=== PATIENT | female | born 1965 | race American Indian/Alaskan Native ===

== ENCOUNTER 2018-12-14 08:43 | Inpatient (IN) | payer BC ==
--- NOTE | 2018-12-14 10:16 | Emergency Department Report ---
ED General Adult HPI - General Chief complaint: Syncope Stated complaint: SYNCOPE Time Seen by Provider: 12/14/18 10:05 Source: patient, EMS, RN notes reviewed Mode of arrival: Ambulatory Limitations: No Limitations - History of Present Illness Initial comments: Primary care Dr.: Dr. 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 The patient presents to the emergency room today with a complaint of resolved lightheadedness, feeling off-balance, and binocular blurry vision. She felt like she might pass out, but she is not sure. 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 She denies headache, neck pain, chest pain, abdominal pain, shortness of breath, hematemesis, bright red blood per rectum. There is no leg pain, there is no leg swelling. The symptoms lasted for 30 seconds. They resolved. They did not radiate anywhere, they were painless, and they did not have exacerbating or relieving factors. The patient endorses compliance with her medications. She endorses no recent medication changes. She has no physical complaints at this time. She did not eat breakfast this morning, but she reports that she typically does not eat in the morning. -: Sudden Severity scale (0 -10): 0 Consistency: now resolved Improves with: none Worsens with: none Associated Symptoms: denies other symptoms - Related Data Home Medications Medication Instructions Recorded Confirmed Last Taken Losartan/Hydrochlorothiazide 1 each PO QAM 12/14/18 12/14/18 12/14/18 [Losartan-Hctz 50-12.5 mg Tab] Allergies Allergy/AdvReac Type Severity Reaction Status Date / Time No Known Allergies Allergy Verified 12/14/18 12:55 ED Review of Systems ROS: Stated complaint: SYNCOPE Other details as noted in HPI Constitutional: malaise, weakness. denies: fever Eyes: vision change ENT: denies: epistaxis Respiratory: denies: cough Cardiovascular: syncope (patient endorses questionable near syncope, but end orses that she did not lose consciousness or pass out.). denies: chest pain Gastrointestinal: nausea. denies: abdominal pain, vomiting, diarrhea, constipation, hematemesis, melena, hematochezia Genitourinary: denies: dysuria Musculoskeletal: denies: back pain Neurological: abnormal gait Psychiatric: anxiety ED Past Medical Hx - Past Medical History Previous Medical History?: Yes Hx Hypertension: Yes Additional medical history: seasonal allergies - Surgical History Past Surgical History?: No - Social History Smoking Status: Unknown if ever smoked - Medications Home Medications: Home Medications Medication Instructions Recorded Confirmed Last Taken Type Losartan/Hydrochlorothiazide 1 each PO QAM 12/14/18 12/14/18 12/14/18 History [Losartan-Hctz 50-12.5 mg Tab] ED Physical Exam - General Limitations: No Limitations General appearance: alert, in no apparent distress - Head Head exam: Present: atraumatic, normocephalic - Eye Eye exam: Present: normal appearance, PERRL, EOMI, other (visual acuity intact to finger counting, color perception, reading at a close distance). Absent: nystagmus - ENT ENT exam: Present: normal exam, normal orophraynx, mucous membranes moist, normal external ear exam - Neck Neck exam: Present: normal inspection, full ROM - Respiratory Respiratory exam: Present: normal lung sounds bilaterally. Absent: respiratory distress - Cardiovascular Cardiovascular Exam: Present: regular rate, normal rhythm, normal heart sounds. Absent: bradycardia, tachycardia, irregular rhythm, systolic murmur, diastolic murmur, rubs, gallop - GI/Abdominal GI/Abdominal exam: Present: soft. Absent: distended, tenderness, guarding, r ebound, rigid, pulsatile mass - Extremities Exam Extremities exam: Present: normal inspection, full ROM, other (2+ pulses noted in the bilateral upper, lower extremities. Compartments soft. No long bony tenderness. The pelvis is stable.). Absent: pedal edema, calf tenderness - Back Exam Back exam: Present: normal inspection, full ROM. Absent: tenderness, CVA tenderness (R), CVA tenderness (L), paraspinal tenderness, vertebral tenderness - Neurological Exam Neurological exam: Present: alert, oriented X3, normal gait, other (Extraocular movements intact. Tongue midline. No facial droop. Facial sensation intact to light touch in the V1, V2, V3 distribution bilaterally. 5 and 5 strength in 4 extremities.. Sensation is intact to light touch in 4 extremities.). Absent: motor sensory deficit - Psychiatric Psychiatric exam: Present: normal affect, normal mood - Skin Skin exam: Present: warm, dry, intact, normal color. Absent: rash ED Course Vital Signs 12/14/18 12/14/18 12/14/18 08:55 09:27 10:15 Temperature 98.5 F Pulse Rate 78 79 Respiratory 14 16 18 Rate Blood Pressure 142/90 Blood Pressure 142/90 137/89 [Right] O2 Sat by Pulse 99 100 Oximetry 12/14/18 12:50 Temperature Pulse Rate 87 Respiratory 16 Rate Blood Pressure Blood Pressure 121/82 [Right] O2 Sat by Pulse 98 Oximetry - Reevaluation(s) Reevaluation #1: 12/14/18 11:04 Differential diagnosis, including but not limited to: Orthostasis, vagal event, structural cardiac disease, TIA, electrolyte derangement, pulmonary embolus Assessment and plan: 53-year-old female, 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 She does not believe that she had any loss of consciousness. Not tachycardic, not hypoxic, however, EKG abnormal, with a left axis deviation, and a left anterior fascicular block. She is not tachycardic. She is not hypoxic. The patient does not meet TPA criteria at this time as she has an NIH score of 0. Given her normal exam and her endorsed symptoms, very unlikely to be large vessel occlusion. A d-dimer is sent to risk stratify patient for pulmonary embolus, and comes back elevated, and therefore, we will obtain a noncontrast CT scan of the brain, and CT angiogram of the chest to exclude pulmonary embolus. The patient was evaluated in consultation with stroke neurology colleague, Dr. Tawny Glynn, who agreed with the aforementioned plan of care, and also agreed with admission to the hospital for further evaluation and management. We discussed this with the patient, who verbalized understanding, and is amenable to this plan of care. 12/14/18 11:53 Reevaluation #2: 12/14/18 14:15 CT scan of the brain negative for acute disease. Dr. Virk except to the medical service. CT scan chest pending interpretation. Reevaluation #3: 12/14/18 14:54 CT angio chest negative for acute disease. ED Medical Decision Making - Lab Data Result diagrams: 12/14/18 10:20 12/14/18 10:20 Vital Signs 12/14/18 12/14/1819 08:55 09:27 10:15 Temperature 98.5 F Pulse Rate 78 79 Respiratory 14 16 18 Rate Blood Pressure 142/90 Blood Pressure 142/90 137/89 [Right] O2 Sat by Pulse 99 100 Oximetry Lab Results 12/14/18 12/14/18 12/14/18 Range/Units 10:20 10:20 10:20 WBC 8.1 (4.5-11.0) K/mm3 RBC 5.38 H (3.65-5.03) M/mm3 Hgb 14.9 H (10.1-14.3) gm/dl Hct 45.7 H (30.3-42.9) % MCV 85 (79-97) fl MCH 28 (28-32) pg MCHC 33 (30-34) % RDW 14.4 (13.2-15.2) % Plt Count 283 (140-440) K/mm3 Lymph % (Auto) 19.4 (13.4-35.0) % [place] % (Auto) 6.2 (0.0-7.3) % Eos % (Auto) 2.6 (0.0-4.3) % Baso % (Auto) 0.7 (0.0-1.8) % Lymph # 1.6 (1.2-5.4) K/mm3 [place] # 0.5 (0.0-0.8) K/mm3 Eos # 0.2 (0.0-0.4) K/mm3 Baso # 0.1 (0.0-0.1) K/mm3 Seg Neutrophils % 71.1 H (40.0-70.0) % Seg Neutrophils # 5.8 (1.8-7.7) K/mm3 PT 14.0 (12.2-14.9) Sec. INR 1.02 (0.87-1.13) D-Dimer 238.85 H (0-234) ng/mlDDU Total Creatine Kinase 185 H (30-135) units/L TSH (0.270-4.200) mlU/mL 12/14/18 Range/Units 10:20 WBC (4.5-11.0) K/mm3 RBC (3.65-5.03) M/mm3 Hgb (10.1-14.3) gm/dl Hct (30.3-42.9) % MCV (79-97) fl MCH (28-32) pg MCHC (30-34) % RDW (13.2-15.2) % Plt Count (140-440) K/mm3 Lymph % (Auto) (13.4-35.0) % [place] % (Auto) (0.0-7.3) % Eos % (Auto) (0.0-4.3) % Baso % (Auto) (0.0-1.8) % Lymph # (1.2-5.4) K/mm3 [place] # (0.0-0.8) K/mm3 Eos # (0.0-0.4) K/mm3 Baso # (0.0-0.1) K/mm3 Seg Neutrophils % (40.0-70.0) % Seg Neutrophils # (1.8-7.7) K/mm3 PT (12.2-14.9) Sec. INR (0.87-1.13) D-Dimer (0-234) ng/mlDDU Total Creatine Kinase (30-135) units/L TSH 1.600 (0.270-4.200) mlU/mL - EKG Data -: EKG Interpreted by Me EKG shows normal: sinus rhythm Rate: normal - EKG Data When compared to previous EKG there are: previous EKG unavailable 12/14/18 11:06 This is a normal sinus, 75 bpm, QTC prolonged, left axis deviation, left anterior fascicular block, low voltage in the lateral leads, abnormal EKG, not having chest pain, not consistent with ST elevation myocardial infarction. - Radiology Data Radiology results: pending Critical care attestation.: If time is entered above; I have spent that time in minutes in the direct care of this critically ill patient, excluding procedure time. ED Disposition Clinical Impression: Near syncope, TIA (transient ischemic attack) Disposition: [id number] OP ADMIT IP TO THIS HOSP Is pt being admited?: Yes Condition: Stable
[2018-12-14 10:34] LABS: Basophils # (Auto) 0.1 K/mm3 (0.0-0.1); Basophils % (Auto) 0.7 % (0.0-1.8); Eosinophils # (Auto) 0.2 K/mm3 (0.0-0.4); Eosinophils % (Auto) 2.6 % (0.0-4.3); Hematocrit 45.7 % (30.3-42.9); Hemoglobin 14.9 gm/dl (10.1-14.3); Lymphocytes # (Auto) 1.6 K/mm3 (1.2-5.4); Lymphocytes % (Auto) 19.4 % (13.4-35.0); Mean Corpuscular HGB Conc 33 % (30-34); Mean Corpuscular Volume 85 fl (79-97); Monocytes # (Auto) 0.5 K/mm3 (0.0-0.8); Monocytes % (Auto) 6.2 % (0.0-7.3); Platelet Count 283 K/mm3 (140-440); Red Blood Count 5.38 M/mm3 (3.65-5.03); Red Cell Distribution Width 14.4 % (13.2-15.2)
[2018-12-14 10:50] LABS: INR 1.02 (0.87-1.13)
[2018-12-14] MEDS ORDERED: NACL 0.9% 500 ML 500 ML IV ONE (11:00)
[2018-12-14 11:24] LABS: BUN/Creatinine Ratio 10; Blood Urea Nitrogen 8 mg/dL (7-17); Calcium 9.7 mg/dL (8.4-10.2); Hemolysis Index 4
--- NOTE | 2018-12-14 12:48 | History and Physical Report ---
History of Present Illness Chief complaint: I got weak, and i blacked out History of present illness: 53 YO Female with Obesity, HTN, Seasonal Allergies presents to ED for evaluation. Pt states that she was at work and experienced a sudden onset of blurred vision, and feeling "Off Balance", slurred speech, and feeling as though she was goind to pass out. EMS notified, and upon arrival the patient was found to be in distress and transported to [facility]. Pt seen and evaluated in ED and found to have symptoms consistent with CVA. Pt admitted to telemetry and initiated on CVA protocol. Pt denies fever, chills, CP, Palpitations, Unilateral leg swelling, calf pain, BRBPR, Productive cough, skin rash, or recent ill contacts. No prior admission for review. All listed medication reconciled at time of admission. Primary care Dr.: Dr. Cohn Past History Past Medical History: hypertension, other (seasonal allergies) Past Surgical History: No surgical history, Other (reviewed) Social history: . denies: smoking, alcohol abuse, prescription drug abuse Family history: hypertension Medications and Allergies Allergies Allergy/AdvReac Type Severity Reaction Status Date / Time No Known Allergies Allergy Verified 12/14/18 12:55 Home Medications Medication Instructions Recorded Confirmed Last Taken Type Losartan/Hydrochlorothiazide 1 each PO QAM 12/14/18 12/14/18 12/14/18 History [Losartan-Hctz 50-12.5 mg Tab] Review of Systems Constitutional: no weight loss, no chills Ears, nose, mouth and throat: no ear pain, no ear discharge, no tinnitis, no decreased hearing, no nose pain, no nasal discharge Breasts: no change in shape, no swelling, no mass Cardiovascular: no chest pain, no orthopnea, no palpitations, no rapid/irregular heart beat, no edema Respiratory: no cough, no cough with sputum, no hemoptysis, no shortness of breath, no dyspnea on exertion Gastrointestinal: no nausea, no diarrhea, no hematemesis Genitourinary Female: no pelvic pain, no flank pain, no menorrhagia, no dysuria Rectal: no pain, no incontinence, no bleeding Musculoskeletal: no neck stiffness, no neck pain, no arm numbness/tingling, no low back pain, no shooting leg pain, no leg numbness/tingling Integumentary: no rash, no pruritis, no redness, no sores, no wounds, no boils Neurological: weakness, lack of coordination, gait dysfunction, motor disturbance, double vision, no vertigo, no headaches, no migraines Psychiatric: no anxiety, no memory loss, no change in sleep habits, no sleep disturbances, no hypersomnia Endocrine: no cold intolerance, no heat intolerance, no polyphagia, no polydipsia, no polyuria, no nocturia Hematologic/Lymphatic: no easy bruising, no easy bleeding Allergic/Immunologic: no urticaria, no allergic rhinitis Exam - Constitutional Vitals: Temp Pulse Resp BP Pulse Ox 98.5 F 79 18 137/89 100 12/14/18 08:55 12/14/18 10:15 12/14/18 10:15 12/14/18 10:15 12/14/18 10:15 General appearance: Present: mild distress, obese - EENT Eyes: Present: PERRL ENT: hearing intact, clear oral mucosa - Neck Neck: Present: supple, normal ROM - Respiratory Respiratory effort: normal Respiratory: bilateral: CTA - Cardiovascular Heart Sounds: Present: S1 & S2. Absent: rub, click - Extremities Extremities: pulses symmetrical, No edema Peripheral Pulses: within normal limits - Abdominal General gastrointestinal: Present: soft, non-tender, non-distended, normal bowel sounds Female genitourinary: Present: normal - Integumentary Integumentary: Present: clear, warm, dry - Musculoskeletal Musculoskeletal: gait normal, strength equal bilaterally - Psychiatric Psychiatric: appropriate mood/affect, intact judgment & insight - Neurologic Neurologic: CNII-XII intact, moves all extremities Results - Labs CBC & Chem 7: 12/14/18 10:20 12/14/18 10:20 Labs: Abnormal lab results 12/14/18 12/14/18 12/14/18 Range/Units 10:20 10:20 10:20 RBC 5.38 H (3.65-5.03) M/mm3 Hgb 14.9 H (10.1-14.3) gm/dl Hct 45.7 H (30.3-42.9) % Seg Neutrophils % 71.1 H (40.0-70.0) % D-Dimer 238.85 H (0-234) ng/mlDDU Glucose 103 H (65-100) mg/dL Total Creatine Kinase (30-135) units/L 12/14/18 Range/Units 10:20 RBC (3.65-5.03) M/mm3 Hgb (10.1-14.3) gm/dl Hct (30.3-42.9) % Seg Neutrophils % (40.0-70.0) % D-Dimer (0-234) ng/mlDDU Glucose (65-100) mg/dL Total Creatine Kinase 185 H (30-135) units/L Assessment and Plan - Patient Problems (1) CVA (cerebral vascular accident) Current Visit: Yes Status: Acute Qualifiers: Precerebral and cerebral artery: unspecified precerebral artery Plan to address problem: Stroke Protocol: Admit to telemetry, CT head, MRI brain, MRA brain, Echo, Carotid Doppler, PT/OT/Speech, Antiplatelet therapy, Neuro checks, Neurology consulted. (2) Obesity (BMI 30.0-34.9) Current Visit: Yes Status: Acute Plan to address problem: Balanced diet, increased physical activity at discharge (3) HTN (hypertension) Current Visit: Yes Status: Acute Qualifiers: Hypertension type: essential hypertension Qualified Code(s): I10 - Essential (primary) hypertension Plan to address problem: monitor bp q shift, continue medical management (4) Metabolic syndrome Current Visit: Yes Status: Acute Plan to address problem: Balanced diet, increased physical activity at discharge, lipid panel, (5) DVT prophylaxis Current Visit: Yes Status: Acute Plan to address problem: SCD to BLE while in bed, Pt ambulating independently
[2018-12-14] MEDS ORDERED: REGLAN PO PRN (12:49)
[2018-12-14] MEDS ORDERED: MILK OF MAGNESIA PO PRN (12:49)
[2018-12-14] MEDS ORDERED: SODIUM CHLORIDE FLUSH SYRINGE 10 ML IV PRN (12:49)
[2018-12-14] MEDS ORDERED: DULCOLAX PR PRN (12:49)
[2018-12-14] MEDS ORDERED: ZOFRAN IV PRN (12:49)
[2018-12-14] MEDS ORDERED: TYLENOL PO PRN (12:49)
[2018-12-14] MEDS ORDERED: PHENERGAN PR PRN (12:49)
--- NOTE | 2018-12-14 14:10 | Cat Scan Report ---
PROCEDURE: CT HEAD/BRAIN WO CON TECHNIQUE: Computerized tomography of the head was performed without contrast material. CT DOSE LENGTH PRODUCT: 920.5 mGycm HISTORY: tia vs syncoppe COMPARISONS: None . FINDINGS: Skull and scalp: Normal . Paranasal sinuses: Normal . Ventricles and subarachnoid spaces: Normal . Cerebrum: No evidence of hemorrhage, acute infarction or mass . Cerebellum and brainstem: No evidence of hemorrhage, acute infarction or mass . Vasculature: Normal noncontrast appearance . IMPRESSION: No acute intracranial abnormality . This document is electronically signed by Jenni Spangler MD., Dec 14 2018 02:08:08 PM ET
[2018-12-14] MEDS ORDERED: ASPIRIN PO STA (14:15)
--- NOTE | 2018-12-14 14:16 | Cat Scan Report ---
PROCEDURE: CT ANGIO CHEST TECHNIQUE: Computerized tomographic angiography of the chest was performed after the IV injection of iodinated nonionic contrast including image processing. The image data was postprocessed using 2-di mensional multiplanar reformatted (MPR) and 3-dimensional (MIP and/or volume rendered) techniques. Au tomated exposure control, adjustment of mA and/or kV according to patient size, or iterative reconstr uction dose optimization techniques were utilized. CT DOSE LENGTH PRODUCT: 624.1 mGycm HISTORY: near syncope + d dimer COMPARISONS: None . FINDINGS: Heart and pericardium: Normal. Thoracic aorta: Normal. Pulmonary vasculature: No filling defect to suggest pulmonary embolism. Lymph nodes: No enlarged thoracic lymph nodes. Lungs: Normal. Pleural space: No effusion, thickening, or pneumothorax. Musculoskeletal structures: No significant abnormality. Upper abdominal structures: 2.3 cm low-density lesion in the medial left hepatic lobe (series 2, [id number]), that is incompletely characterized, but may represent a cyst. Low-density lesions in the bila teral kidneys, there are incompletely characterized but may represent cysts. IMPRESSION: No evidence of pulmonary embolism . Low-density lesions within the medial left hepatic lobe and the bilateral kidneys, incompletely tania cterized on this nondedicated study. Consider further evaluation with abdominal ultrasound. This document is electronically signed by Jenni Spangler MD., Dec 14 2018 02:14:14 PM ET
--- NOTE | 2018-12-14 15:31 | Vascular Lab Report ---
PROCEDURE: VL CAROTID DUPLEX BILAT HISTORY: stroke FINDINGS: Real-time ultrasound of the cervical arterial vasculature was performed using grayscale and color Doppler images. On the right, peak systolic velocity in the common carotid artery was 109 cm/s. In the internal carot id was 110 cm/s and in the external carotid 80 cm/s. Flow in the vertebral artery was antegrade at 51 cm/s. The ratio of flow of the internal carotid to the common carotid was 1.0 which is within normal limits. On the left, peak systolic velocity in the common carotid artery was 100 cm/s. In the internal caroti d it was 96 cm/s and in the external carotid 64 cm/s. Flow in the vertebral artery was antegrade at 5 8 cm/s. IMPRESSION: No stenosis of greater than 50% is seen in the cervical arterial vasculature This document is electronically signed by Trevon Patel MD., Dec 14 2018 03:29:49 PM ET
--- NOTE | 2018-12-14 16:45 | Magnetic Resonance Report ---
MRI BRAIN WITHOUT CONTRAST: 12/14/18 12:49:00 CLINICAL: New onset dizziness. TECHNIQUE: Axial diffusion, T1, T2, gradient echo T2*, coronal and axial FLAIR and sagittal T1 sequences on a 1.5 [place] magnet. FINDINGS: The ventricles and sulci are normal for age. No restricted diffusion. No mass or mass effect. No hemorrhage, edema or extra-axial collection. A benign 6 mm extra-axial cyst of the posterior fossa is associated with the right transverse venous sinus. No chronic microbleeds on the gradient echo sequence. Normal pituitary and optic chiasm. The brainstem and cerebellum are normal. Intact vascular flow voids. Normal sinuses. The orbits, and soft tissues are normal. Normal calvarium and skull base. IMPRESSION: No evidence of acute/subacute infarct or hemorrhage. A benign 6 mm right posterior fossa cyst associated with the transverse venous sinus.
--- NOTE | 2018-12-14 16:46 | Magnetic Resonance Report ---
MRA HEAD WITHOUT CONTRAST: 12/14/18 12:49:00 CLINICAL: Stroke. TECHNIQUE: Axial 3-D [id number] MR angiography of the grayling of [place] with review of axial source images. FINDINGS: Intact [place] of [place] with no aneurysm, stenosis or occlusion. Symmetric blood flow in the anterior, middle and posterior cerebral arteries. Normal basilar and vertebral arteries. IMPRESSION: Normal study.
--- NOTE | 2018-12-14 17:02 | Progress Note ---
Subjective Date of service: 12/14/18 Interval history: my reading on the MRI/MRA/ CT of head is normal the transverse sinus change is natomical issue and no pathological marker but still want to discuss with radiology plan follow up Objective - Vital Sign Vital Signs - 12hr 12/14/18 12/14/18 12/14/18 08:55 09:27 10:15 Temperature 98.5 F Pulse Rate 78 79 Respiratory 14 16 18 Rate Blood Pressure 142/90 Blood Pressure 142/90 137/89 [Right] O2 Sat by Pulse 99 100 Oximetry 12/14/18 12:50 Temperature Pulse Rate 87 Respiratory 16 Rate Blood Pressure Blood Pressure 121/82 [Right] O2 Sat by Pulse 98 Oximetry - Laboratory Findings CBC and BMP: 12/14/18 10:20 12/14/18 10:20 Abnormal Lab Findings: Abnormal Labs 12/14/18 12/14/18 12/14/18 10:20 10:20 10:20 RBC 5.38 H Hgb 14.9 H Hct 45.7 H Seg Neutrophils % 71.1 H D-Dimer 238.85 H Glucose 103 H Total Creatine Kinase 12/14/18 10:20 RBC Hgb Hct Seg Neutrophils % D-Dimer Glucose Total Creatine Kinase 185 H
--- NOTE | 2018-12-14 18:09 | Consultation ---
History of Present Illness Consult date: 12/14/18 Medications and Allergies Allergies Allergy/AdvReac Type Severity Reaction Status Date / Time No Known Allergies Allergy Verified 12/14/18 12:55 Home Medications Medication Instructions Recorded Confirmed Last Taken Type Losartan/Hydrochlorothiazide 1 each PO QAM 12/14/18 12/14/18 12/14/18 History [Losartan-Hctz 50-12.5 mg Tab] Active Meds: Active Medications Acetaminophen (Tylenol) 650 mg PO Q4H PRN PRN Reason: Pain, Mild (1-3) Aspirin (Aspirin) 325 mg PO QDAY ARMANI Atorvastatin Calcium (Lipitor) 40 mg PO QHS ARMANI Bisacodyl (Dulcolax) 10 mg WV QDAY PRN PRN Reason: Constipation Magnesium Hydroxide (Milk Of Magnesia) 30 ml PO Q4H PRN PRN Reason: Constipation Metoclopramide HCl (Reglan) 10 mg PO Q6H PRN PRN Reason: Nausea And Vomiting Ondansetron HCl (Zofran) 4 mg IV Q8H PRN PRN Reason: Nausea And Vomiting Promethazine HCl (Phenergan) 25 mg WV Q6H PRN PRN Reason: Nausea And Vomiting Sodium Chloride (Sodium Chloride Flush Syringe 10 Ml) 10 ml IV PRN PRN PRN Reason: LINE FLUSH Physical Examination - Vital Signs Vital Signs: Vital Signs Temp Pulse Resp BP Pulse Ox 98.5 F 78 14 142/90 99 12/14/18 08:55 12/14/18 08:55 12/14/18 08:55 12/14/18 08:55 12/14/18 08:55 Results - Laboratory Findings CBC and BMP: 12/14/18 10:20 12/14/18 10:20 Abnormal Lab Findings: Abnormal Labs 12/14/18 12/14/18 12/14/18 10:20 10:20 10:20 RBC 5.38 H Hgb 14.9 H Hct 45.7 H Seg Neutrophils % 71.1 H D-Dimer 238.85 H Glucose 103 H Total Creatine Kinase 12/14/18 10:20 RBC Hgb Hct Seg Neutrophils % D-Dimer Glucose Total Creatine Kinase 185 H Assessment and Plan [facility] Consult Services Impression: * Dizzines STAT consult. Patient is a pleasant 53 year old woman who presents with a spell of short duration of dizziness, without clear indication of focal deficits, and she now has a normal exam. DD includes TIA. Patient is not candidate for acute intervention or tPA thromnbolytics. There is no indication of LVO disease and so not candidate for thrombectomy. Consider observational admission for MRI head and MRA head and if negative, follow up as outpt. No other recommendations with regards to acute treatment. Discussed with ED MD Please call with questions Wimler Glynn MD [facility] CC dizziness History of Present Illness Patient is a pleasant 53 year old woman who presents with history of a single spell of dizziness, short duration, specifically, patient states that she felt a sensation of dizziness and disequilibrium and felt a slight imbalance in the time the symptoms started earlier this morning. Furthermore patient did not have any other associated symptoms. Patient was then brought here for further evaluation. Since then the symptoms of completely resolved. The duration of the symptoms were only several minutes. Diagnostic: CT head reviewed Exam: Patient is in no apparent distress. Patient appears as stated age. No obvious acute respiratory or cardiac distress. Patient is well groomed and well- nourished. 1A: Level of Consciousness - Alert; keenly responsive 1B: Ask Month and Age - Both Questions Right 1C: 'Blink Eyes' & 'Squeeze Hands' - Performs Both Tasks 2: Test Horizontal Extraocular Movements - Normal 3: Test Visual Guy - No Visual Loss 4: Test Facial Palsy - Normal symmetry 5A: Test Left Arm Motor Drift - No Drift for 10 Seconds 5B: Test Right Arm Motor Drift - No Drift for 10 Seconds 6A: Test Left Leg Motor Drift - No Drift for 5 Seconds 6B: Test Right Leg Motor Drift - No Drift for 5 Seconds 7: Test Limb Ataxia - No Ataxia 8: Test Sensation - Normal; No sensory loss 9: Test Language/Aphasia - Normal; No aphasia 10: Test Dysarthria - Normal 11: Test Extinction/Inattention - No abnormality NIHSS 0 Medical Decision Making: - Extensive number of diagnosis or management options are considered above. - Extensive amount of complex data reviewed. - High risk of complication and/or morbidity or mortality are associated with differential diagnostic considerations above. - There may be Uncertain outcome and increased probability of prolonged functional impairment or high probability of severe prolonged functional impairment associated with some of these differential diagnosis. Medical Data Reviewed: 1.Data reviewed include clinical labs, radiology,Medical Tests; 2.Tests results discussed w/performing or interpreting physician; 3.Obtaining/reviewing old medical records; 4.Obtaining case history from another source; 5.Independent review of image, tracing or specimen. Patient was informed the Neurology Consult would happen via telehealth (remote video) and consented to receiving care in this manner.
[2018-12-14] MEDS ORDERED: ASPIRIN ONE (19:02)
[2018-12-15] MEDS ORDERED: ASPIRIN PO SCH (10:00)
[2018-12-15] MEDS ORDERED: COZAAR PO SCH (10:00)
[2018-12-15] MEDS ORDERED: HCTZ PO SCH (10:00)
--- NOTE | 2018-12-15 15:10 | Discharge Summary ---
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 MRI/MRA unremarkable for stroke. 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 every 3 months with her pcp Borderline low EF on ECHO: outpatient Cardiology followup Obesity (BMI 30.0-34.9), bmi 33.5: careers counsellor on with reduction HTN (hypertension); low salt diet Metabolic syndrome suspected: lifestyle modifications discussed, check lipids prior to discharge Disposition: DC-01 TO HOME OR SELFCARE Time spent for discharge: 34 minutes Core Measure Documentation - Palliative Care Palliative Care/ Comfort Measures: Not Applicable - Core Measures Any of the following diagnoses?: none - VTE Discharge Requirements Deep Vein Thrombosis/Pulmonary Embolism Present on Admission: No Has pt received <5 days of overlap therapy or INR<2.0: No Anticoagulant overlap therapy prescribed at discharge: No Contraindication No Overlap Therapy order at DC: Not Indicated Exam - Physical Exam Narrative exam: Gen: WDWN, NAD, Awake, Alert, Orientated HEENT: NCAT, EOMI, PERRL, OP Clear Neck: supple, no adenopathy, no thyromegaly, no JVD CVS/Heart: RRR, normal S1S2, pulses present bilaterally Chest/Lungs: CTA B, Symmetrical chest expansion, good air entry bilaterally GI/Abdomen: soft, NTND, good bowel sounds, no guarding or rebound /Bladder: no suprapubic tenderness, no CVA or paraspinal tenderness Extermity/Skin: no c/c/e, no obvious rash MSK: FROM x 4 Neuro: CN 2-12 grossly intact, no new focal deficits Psych: calm - Constitutional Vitals: Temp Pulse Resp BP Pulse Ox 97.8 F 83 16 144/91 97 12/15/18 03:58 12/15/18 03:58 12/15/18 03:58 12/15/18 03:58 12/15/18 03:58 Plan Activity: other (no strenous activity unless cleared by PCP) Diet: low salt Special Instructions: record daily BP diary Additional Instructions: follow up Liver and kidney lesion with PCP. Follow up with: PRIMARY CAREMD [Primary Care Provider] - 3-5 Days TERENCE ESPARZA MD [Staff Physician] - 7 Days LOU BURNHAM MD [Staff Physician] - 7 Days Forms: Work/School Release Form Prescriptions: AtorvaSTATin [Lipitor] 40 mg PO QHS #30 tablet Aspirin 325 mg PO QDAY #30 tablet
--- NOTE | 2018-12-15 15:26 | Ultrasound Report ---
PROCEDURE: US ABDOMEN COMPLETE TECHNIQUE: Ultrasound examination of the abdomen HISTORY: liver and kidney mass COMPARISONS: Chest CT 12/14/2018 FINDINGS: Gallbladder is surgically absent. No upper abdominal ascites. Normal caliber common bile duct with 5 mm diameter. Normal caliber visible portion of abdominal aorta. Pancreas not well visualized. Visible spleen appears normal. Nonspecific, smoothly marginated, hypoechoic bilateral renal lesions are statistically most likely cy sts. There is no evidence of mural nodularity, septation, wall thickening, or calcification. A nonspecific, smoothly marginated, hypoechoic to anechoic medial segment left hepatic lobe lesion, w ith posterior acoustic enhancement, is statistically most likely a cyst. It corresponds with location of lesion on CT. There is no evidence of mural nodularity, septation, wall thickening, or calcificat ion. No ultrasound evidence of hemangioma or other liver lesion. IMPRESSION: Ultrasound findings suggest cysts in the liver and kidneys. No definite evidence of solid mass Prior cholecystectomy This document is electronically signed by Heriberto Knowles MD., Dec 15 2018 03:24:07 PM ET
--- NOTE | 2018-12-15 16:19 | Progress Note ---
Subjective Date of service: 12/15/18 Interval history: note the chest scan is negative for clot as second measure for d-dimer OK to go home Objective - Laboratory Findings CBC and BMP: 12/14/18 10:20 12/14/18 10:20 Abnormal Lab Findings: Abnormal Labs 12/14/18 12/14/18 12/14/18 10:20 10:20 10:20 RBC 5.38 H Hgb 14.9 H Hct 45.7 H Seg Neutrophils % 71.1 H D-Dimer 238.85 H Glucose 103 H Total Creatine Kinase 12/14/18 10:20 RBC Hgb Hct Seg Neutrophils % D-Dimer Glucose Total Creatine Kinase 185 H
[2018-12-15 16:38] LABS: Chol/HDL Ratio 3.33 %
[2018-12-15 17:27] VITALS: BP 116/81
== END 2018-12-15 19:04 | disposition home or self-care (01) | DRG 312 ==
LOC: ED 08:43 → 4A 12:49
PROVIDERS: ADMIT Internal Medicine; ATTEND Internal Medicine
DX: R55 Syncope and collapse (principal); E66.9 Obesity, unspecified; Z68.33 Body mass index [BMI] 33.0-33.9, adult; I10 Essential (primary) hypertension; R16.0 Hepatomegaly, not elsewhere classified; K76.9 Liver disease, unspecified; N28.89 Other specified disorders of kidney and ureter; E88.81 Metabolic syndrome and other insulin resistance; Z82.49 Family history of ischemic heart disease and other diseases of the circulatory system; Z71.3 Dietary counseling and surveillance; Z79.899 Other long term (current) drug therapy
CPT/HCPCS: 36415; 70450; 70544; 70551; 71275; 76700; 80048; 80061; 82550; 83880; 84443; 84484; 85025; 85379; 85610; 93005; 93010; 93306; 93880; 96360; G0378; A9270-GY; J7040; Q9967